=== PATIENT | male | born 1965 | race Caucasian/White ===

== ENCOUNTER 2023-12-27 11:30 | Inpatient (IN) | payer MEDICAID, OTHER ==
[~2023-12-27] VITALS: Ht 167.6 cm; Wt 69.9 kg
[2023-12-27 12:21] LABS: BASOPHILS % 0.8 % (0.0-2.0); EOSINOPHILS % 3.5 % (0.0-5.0); HEMATOCRIT. 43.6 % (42.0-52.0); HEMOGLOBIN. 14.9 g/dL (14.0-18.0); LYMPHOCYTES % 19.7 % (20.0-50.0); MEAN CORPUSCULAR HEMOGLOBIN 31.4 pg (28.0-32.0); MEAN CORPUSCULAR HGB CONC 34.3 g/dL (31.0-37.0); MEAN CORPUSCULAR VOLUME 91.6 fL (80.0-94.0); MEAN PLATELET VOLUME 8.6 fl (7.4-10.4); MONOCYTES % 6.7 % (2.0-8.0); NEUTROPHILS % 69.3 % (40.0-76.0); PLATELET 296 x1000/uL (130-400); RED BLOOD CELL COUNT 4.76 mill/uL (4.7-6.1); RED CELL DISTRIBUTION WIDTH 13.5 % (11.6-14.6); WHITE BLOOD COUNT 8.2 x1000/uL (4.5-11.0)
[2023-12-27] MEDS: ASPIRIN 325MG TABLET PO ONE (12:27)
[2023-12-27 12:33] LABS: CHLORIDE 101 mEq/L (98-107); POTASSIUM 3.5 mEq/L (3.5-5.1); SODIUM 136 mEq/L (136-145)
[2023-12-27 12:34] LABS: CALCIUM 9.2 mg/dL (8.7-10.4); CARBON DIOXIDE 28 mEq/L (21-32)
[2023-12-27 12:39] LABS: CREATININE 0.9 mg/dL (0.6-1.3); GLUCOSE 88 mg/dL (70-105); UREA NITROGEN BLOOD 14 mg/dL (9-23)
[2023-12-27 12:40] LABS: TROPONIN I HIGH SENSITIVITY 13 ng/L (3.0-53)
[2023-12-27 18:18] LABS: TROPONIN I HIGH SENSITIVITY 12 ng/L (3.0-53)
[2023-12-27] MEDS ORDERED: ONDANSETRON HCL 4MG/2ML INJ IV PRN (19:15)
[2023-12-27] MEDS ORDERED: CLONIDINE 0.1MG TABLET PO PRN (19:15)
[2023-12-27] MEDS ORDERED: ACETAMINOPHEN 325MG TABLET PO PRN (19:15)
[2023-12-27] MEDS ORDERED: IPRATROPIUM/ALBUTEROL 0.5-3(2.5)MG/3ML NEB HHN PRN (19:15)
[2023-12-27] MEDS ORDERED: DOCUSATE SODIUM 100MG CAPSULE PO PRN (19:15)
[2023-12-27] MEDS: ENOXAPARIN 40MG/0.4ML SYR SUBCUT SCH (20:22)
[2023-12-27] MEDS: PANTOPRAZOLE SODIUM 40 MG/VIAL IV SCH (20:22)
[2023-12-27] MEDS: HYDRALAZINE HCL 25MG TABLET PO SCH (22:00)
[2023-12-27] MEDS: NITROGLYCERIN OINT 1GM/INCH UDPKT TD SCH (22:00)
[2023-12-27 22:01] LABS: T4 FREE 1.21 ng/dL (0.89-1.76)
[2023-12-27 22:02] LABS: THYROID STIMULATING HORMONE 1.56 uIU/mL (0.55-4.78)
[2023-12-27] MEDS ORDERED: ZOLPIDEM TARTRATE 5MG TABLET PO PRN (22:45)
[2023-12-28 03:30] VITALS: BP 119/80; PULSE 64; RESP 18; TEMP 36.05844; O2SAT 99
[2023-12-28 04:26] VITALS: BP 119/80; PULSE 64; RESP 18; TEMP 36.0844
[2023-12-28 06:43] LABS: CLARITY URINE CLEAR (CLEAR); COLOR URINE YELLOW (YELLOW); GLUCOSE URINE NEGATIVE (NEGATIVE); KETONES URINE NEGATIVE (NEGATIVE); LEUKOCYTE ESTERASE URINE NEGATIVE (NEGATIVE); NITRITE URINE NEGATIVE (NEGATIVE); OCCULT BLOOD URINE NEGATIVE (NEGATIVE); PROTEIN URINE NEGATIVE (NEGATIVE); SPECIFIC GRAVITY URINE 1.011 (1.005-1.030); UROBILINOGEN URINE 0.2 E.U./dL (0.2-1.0)
[2023-12-28 06:58] LABS: *AMPHETAMINES SCREEN URINE NEGATIVE (NEGATIVE)
[2023-12-28 07:00] LABS: *BARBITURATES SCREEN URINE NEGATIVE (NEGATIVE); *BENZODIAZEPINES SCREEN URINE NEGATIVE (NEGATIVE); *COCAINE SCREEN URINE NEGATIVE (NEGATIVE); CANNABINOID URINE SCREEN PRESUMPTIVE POSITIVE (NEGATIVE); ECSTASY MDMA SCREEN URINE NEGATIVE (NEGATIVE); METHADONE URINE SCREEN NEGATIVE (NEGATIVE); OPIATES URINE SCREEN NEGATIVE (NEGATIVE); PHENCYCLIDINE URINE SCREEN NEGATIVE (NEGATIVE)
[2023-12-28 07:35] LABS: BASOPHILS % 0.7 % (0.0-2.0); EOSINOPHILS % 5.3 % (0.0-5.0); HEMATOCRIT. 44.6 % (42.0-52.0); HEMOGLOBIN. 14.9 g/dL (14.0-18.0); LYMPHOCYTES % 18.9 % (20.0-50.0); MEAN CORPUSCULAR HEMOGLOBIN 30.6 pg (28.0-32.0); MEAN CORPUSCULAR HGB CONC 33.5 g/dL (31.0-37.0); MEAN CORPUSCULAR VOLUME 91.3 fL (80.0-94.0); MEAN PLATELET VOLUME 8.7 fl (7.4-10.4); MONOCYTES % 6.1 % (2.0-8.0); PLATELET 280 x1000/uL (130-400); RED BLOOD CELL COUNT 4.89 mill/uL (4.7-6.1); RED CELL DISTRIBUTION WIDTH 14.1 % (11.6-14.6); WHITE BLOOD COUNT 7.3 x1000/uL (4.5-11.0)
[2023-12-28 07:43] LABS: PROTHROMBIN TIME 11.1 sec (9.6-11.0)
[2023-12-28 07:50] LABS: CHLORIDE 102 mEq/L (98-107); POTASSIUM 3.3 mEq/L (3.5-5.1); SODIUM 136 mEq/L (136-145)
[2023-12-28 07:51] LABS: CALCIUM 9.2 mg/dL (8.7-10.4); CARBON DIOXIDE 26 mEq/L (21-32)
[2023-12-28 07:55] LABS: CREATINE KINASE MB FRACTION 1.8 ng/mL (0.5-3.6)
[2023-12-28 07:56] LABS: CREATININE 0.7 mg/dL (0.6-1.3); GLUCOSE 108 mg/dL (70-105); PROTEIN TOTAL 6.6 g/dL (6.0-8.3); TRIGLYCERIDE 168 mg/dL (0-150); UREA NITROGEN BLOOD 9 mg/dL (9-23)
[2023-12-28 07:57] LABS: ALBUMIN 4.3 g/dL (3.2-4.8); LDL CHOLESTEROL 146 mg/dL (5-100)
[2023-12-28 07:58] LABS: ALANINE AMINOTRANSFERASE 17 IU/L (10-49); ASPARTATE AMINOTRANSFERASE 19 IU/L (<34); BILIRUBIN DIRECT 0.2 mg/dL (<=3.0); BILIRUBIN TOTAL 0.6 mg/dL (0.1-1.0); CHOLESTEROL 191 mg/dL (<200); HDL CHOLESTEROL 30 mg/dL (>55); PHOSPHORUS 3.2 mg/dL (2.5-4.9)
[2023-12-28 08:00] VITALS: BP 117/80; PULSE 58; RESP 18; TEMP 36.3918; O2SAT 99
[2023-12-28] MEDS: ASPIRIN 81MG TABLET PO SCH (08:28)
[2023-12-28] MEDS: ACETAMINOPHEN 325MG TABLET PO PRN (10:05)
[2023-12-28 12:00] VITALS: BP 116/76; PULSE 68; RESP 18; TEMP 36.44736; O2SAT 99
[2023-12-28 15:35] VITALS: BP 100/50; PULSE 67; RESP 18; TEMP 36.33624; O2SAT 99
[2023-12-28 20:00] VITALS: BP 121/76; PULSE 61; RESP 19; TEMP 36.78072; O2SAT 99
[2023-12-29] VITALS: BP 133/84; PULSE 63; RESP 18; TEMP 36.44736; O2SAT 96
[2023-12-29 04:00] VITALS: BP 142/82; PULSE 61; RESP 18; TEMP 36.33624; O2SAT 100
[2023-12-29 08:00] VITALS: BP 147/81; PULSE 59; RESP 18; TEMP 36.50292; O2SAT 100
[2023-12-29] MEDS: FAMOTIDINE 20MG/2ML VIAL IV SCH (08:57)
[2023-12-29 12:00] VITALS: BP 145/83; PULSE 59; RESP 17; TEMP 36.3918; O2SAT 99
[2023-12-29] MEDS ORDERED: ASPI-1497 MT (13:36)
[2023-12-29] MEDS ORDERED: NITR0.4T49 SL (13:36)
[2023-12-29] MEDS ORDERED: LIP40 MT (13:36)
[2023-12-29 16:00] VITALS: BP 138/81; PULSE 66; RESP 17; TEMP 36.78072; O2SAT 99
[2023-12-29 17:12] VITALS: BP 138/81; PULSE 66; TEMP 98; O2SAT 99
== END 2023-12-29 17:00 | disposition short-term general hospital (02) | DRG 313 ==
LOC: ER 13:03 → 5WST 13:56 → EDBEDREQ 13:57 → 7EST 12-28 03:05
PROVIDERS: ADMIT Internal Medicine; ATTEND Internal Medicine
DX: R07.89 Other chest pain (principal); I10 Essential (primary) hypertension; E87.6 Hypokalemia; Z88.1 Allergy status to other antibiotic agents; E78.5 Hyperlipidemia, unspecified
CPT/HCPCS: 36415; 71045; 80048; 80061; 80076; 80305; 81003; 82550; 82553; 83735; 83880; 84100; 84439; 84443; 84480; 84484; 85025; 85379; 93005; 93306; 99285; J1650; J2470; J3490